=== PATIENT | male | born 1960 | race Caucasian/White ===

== ENCOUNTER 2021-05-12 17:22 | Emergency (ER) | payer OTHER ==
--- NOTE | 2021-05-12 17:40 | EDM.PDOC ---
ED HPI GENERAL MEDICAL PROBLEM - General Chief Complaint: Cardiovascular Problem Stated Complaint: IRREGULAR HEART BEAT Time Seen by Provider: 05/12/21 17:37 Source of Information: Reports: Patient History Limitations: Reports: No Limitations - History of Present Illness INITIAL COMMENTS - FREE TEXT/NARRATIVE: 60-year-old male who states at approximately 1:30 PM today while at work doing some rather strenuous work he noted all of a sudden that he became somewhat lightheaded and he felt short of breath with any kind of activity and he felt that his energy level dropped and that any task that he was doing seemed to be harder for him to do. He got short of breath with any activity and he felt very fatigued. He also felt very shaky all over. He felt his pulse and he felt like his heart was beating somewhat fast. He had no chest pain associated with this. There was no nausea or vomiting. He had no arm, neck, jaw or back pain associated with this. He did feel tense all over. He continued to work and at 3:30 PM he got off and went home and states that he made him some dinner and ate a bowl of chicken soup at around 4:30 PM. Following this, he states he went to the hot tub and spent about 10-15 minutes in the hot tub to try to relax and when he got out he was feeling rather sweaty and still noticed that his pulse rate was elevated. His got home at around 5 PM and she also noted that his pulse rate was elevated in the 130 to 140 range and she felt that he was diaphoretic (she is a dietitian at [employer]) and therefore she brought into the emergency department for evaluation. He presents here with a pulse rate of 140 and he still having no chest pain. He states that he feels no shortness of breath while lying on the stretcher and really other than feeling tense all over, he has no symptoms now. He has had no antecedent symptoms. He reports she has been eating and drinking normally. There have been no cough or cold type symptoms. He has had no sore throat. He did have cold symptoms about 2 weeks ago but they have completely resolved now. He has never had anything like this before. He really has no medical problems other than some hyper cholesterolemia that is being treated with [id number] meds and diet change. There are no other associated signs or symptoms. There are no other modifying factors. 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 (see below) (Nothing.) - Related Data Allergies Allergy/AdvReac Type Severity Reaction Status Date / Time No Known Allergies Allergy Verified 05/12/21 17:49 Home Meds: Home Meds Turm/Ging/Orion/Yuc/Amrit/Elin/Hor [Tumersaid Tablet] 1 tab PO DAILY 05/12/21 [History] Ubidecarenone [Co Q-10] 10 mg PO DAILY 05/12/21 [History] Vitamin B Complex [Super B-50 Complex] 1 tab PO DAILY 05/12/21 [History] Past Medical History Cardiovascular History: Reports: High Cholesterol - Past Surgical History HEENT Surgical History: Reports: Naso-Sinus Surgery Musculoskeletal Surgical History: Reports: Other (See Below) (Right knee surgery) Dermatological Surgical History: Reports: Other (See Below) (Lipoma removed from his back) Social & Family History - Tobacco Use Tobacco Use Status *Q: Unknown Ever Used Tobacco (Nonsmoker.) - Alcohol Use Alcohol Use History: Yes Alcohol Use Frequency: Daily (Drinks one beer or more a day. Has 2 glasses of wine a day and usually has two double bourbons daily.) ED ROS GENERAL - Review of Systems Review Of Systems: See Below Constitutional: Reports: Fatigue (Today after 1:30 PM). Denies: Fever, Chills HEENT: Denies: Throat Pain, Throat Swelling Respiratory: Reports: Shortness of Breath (With activity). Denies: Cough Cardiovascular: Reports: Dyspnea on Exertion, Lightheadedness. Denies: Chest Pain Endocrine: Reports: Fatigue GI/Abdominal: Denies: Abdominal Pain, Nausea, Vomiting : Denies: Dysuria, Hematuria Musculoskeletal: Denies: Shoulder Pain, Arm Pain, Back Pain Skin: Reports: Diaphoresis. Denies: Rash Neurological: Denies: Confusion, Dizziness, Headache Psychiatric: Denies: Anxiety Hematologic/Lymphatic: Denies: Easy Bleeding, Easy Bruising Immunologic: Reports: Other (Patient has been vaccinated for Covid) ED EXAM, GENERAL - Physical Exam Exam: See Below Exam Limited By: No Limitations General Appearance: Alert, WD/WN, Mild Distress, Other (Other than his heart rate being 140, he is nontoxic.) Eye Exam: Bilateral Eye: EOMI, Normal Inspection, PERRL Ears: Normal External Exam, Hearing Grossly Normal Ear Exam: Bilateral Ear: Auricle Normal Nose: Normal Inspection, Normal Mucosa, No Blood Throat/Mouth: Normal Lips, Normal Voice, No Airway Compromise, Other Head: Atraumatic, Normocephalic Neck: Normal Inspection, Supple, Non-Tender, Full Range of Motion #1 Interpretation EKG Date: 05/12/21 Time: 17:27 Rhythm: A-Flutter (With a 2 to 1 block.) Rate (Beats/Min): 130 Elgin: Normal P-Wave: Absent QRS: Normal ST-T: Other (Diffuse nonspecific ST-T changes) QT: Prolonged (Prolonged QTc.) Comparison: NA - No Prior EKG #2 Interpretation EKG Date: 05/12/21 Time: 19:38 Rhythm: NSR Rate (Beats/Min): 66 Elgin: LAD-Left Elgin Deviation (Slight left axis.) P-Wave: Present QRS: Other (LVH. Poor R-wave progression.) ST-T: Elevated (ST segment elevation in V1 and V2, questionable early repolarization. There is ST segment inversion in lead 1 and depression in 2, 3 and aVF.) QT: Normal Comparison: Change From Previous EKG (Compared to the previous EKG done today, his atrial flutter with RVR has resolved area his QTc is now normal) Course - Vital Signs Last Recorded V/S: Last Vital Signs Temp 36.6 C 05/12/21 17:35 Pulse 133 H 05/12/21 19:00 Resp 17 05/12/21 20:15 BP 156/91 H 05/12/21 20:15 Pulse Ox 95 05/12/21 20:15 - Orders/Labs/Meds Orders: Active Orders 24 hr Category Date Time Status EKG Documentation Completion [RC] ASDIRECTED Care 05/12/21 18:00 Active Chest 1V Frontal [CR] Stat Exams 05/12/21 17:56 Taken Heparin Sodium/0.45% NaCl [Heparin 25,000 Units in 1/2 Med 05/12/21 21:48 Active NS 500 ML] 500 ml IV ASDIRECTED Sodium Chloride 0.9% [Normal Saline] 1,000 ml Med 05/12/21 18:15 Active IV ASDIRECTED Sodium Chloride 0.9% [Normal Saline] 1,000 ml Med 05/12/21 19:45 Active IV ASDIRECTED Sodium Chloride 0.9% [Saline Flush] Med 05/12/21 17:56 Active 10 ml FLUSH ASDIRECTED PRN Peripheral IV Insertion Adult [OM.PC] Routine Oth 05/12/21 17:56 Ordered EKG 12 Lead [EK] Routine Ther 05/12/21 17:56 Ordered Medication Orders Sodium Chloride (Normal Saline) 1,000 mls @ 150 mls/hr IV ASDIRECTED CATRINA Last Admin: 05/12/21 18:35 Dose: 999 mls/hr Documented by: JASVIR Sodium Chloride (Normal Saline) 1,000 mls @ 125 mls/hr IV ASDIRECTED CATRINA Heparin Sodium/Sodium Chloride (Heparin 25,000 Units In 1/2 Ns 500 Ml) 500 mls @ 20.003 mls/hr IV ASDIRECTED CATRINA Last Admin: 05/12/21 22:01 Dose: 10.5 units/kg/hr, 20.003 mls/hr Documented by: LORENZO Cosigned by: TANYA Sodium Chloride (Sodium Chloride 0.9% 10 Ml Syringe) 10 ml FLUSH ASDIRECTED PRN PRN Reason: Keep Vein Open Last Admin: 05/12/21 18:05 Dose: 10 ml Documented by: JASVIR Labs: Laboratory Tests 05/12/21 05/12/21 05/12/21 Range/Units 18:20 18:20 18:20 WBC 8.2 (3.2-10.1) x10-3/uL RBC 4.78 (3.90-5.90) x10(6)uL Hgb 15.8 (12.9-17.7) g/dL Hct 46.5 (38.3-50.1) % MCV 97.1 (80.8-98.7) fL MCH 33.0 (27.0-33.3) pg MCHC 34.0 (28.7-35.3) g/dL RDW 12.9 (12.4-15.0) % Plt Count 210 (117-477) x10(3)uL MPV 8.4 (6.7-11.0) fL Neut % (Auto) 64.8 (40.3-71.8) % Lymph % (Auto) 19.4 (15.8-45.3) % Catron % (Auto) 12.6 (5.5-15.2) % Eos % (Auto) 2.9 (0.1-6.8) % Baso % (Auto) 0.3 (0.3-3.8) % Neut # (Auto) 5.3 (1.7-6.9) x10-3/uL Lymph # (Auto) 1.6 (0.5-4.5) x10-3/uL Catron # (Auto) 1.0 (0.0-1.2) x10-3/uL Eos # (Auto) 0.2 (0.0-0.6) x10-3/uL Baso # (Auto) 0.0 (0.0-0.3) x10-3/uL APTT (24.4-33.2) SECONDS Sodium 143 (135-145) mmol/L Potassium 4.6 (3.5-5.3) mmol/L Chloride 105 (100-110) mmol/L Carbon Dioxide 28 (21-32) mmol/L BUN 29 H (7-18) mg/dL Creatinine 2.1 H* (0.70-1.30) mg/dL Est Cr Clr Drug Dosing TNP Estimated GFR (MDRD) 32 L (>60) BUN/Creatinine Ratio 13.8 (9-20) Glucose 110 (80-116) mg/dL Calcium 9.1 (8.6-10.2) mg/dL Magnesium 2.1 (1.8-2.5) mg/dL Total Bilirubin 0.6 (0.1-1.3) mg/dL AST 34 H (5-25) IU/L ALT 43 H (12-36) U/L Alkaline Phosphatase 68 (56-112) IU/L Troponin I 116.7 H* (4.0-60.3) pg/mL Total Protein 6.9 (6.0-8.0) g/dL Albumin 3.9 (3.2-4.6) g/dL Globulin 3.0 g/dL Albumin/Globulin Ratio 1.3 05/12/21 05/12/21 Range/Units 18:22 20:30 WBC (3.2-10.1) x10-3/uL RBC (3.90-5.90) x10(6)uL Hgb (12.9-17.7) g/dL Hct (38.3-50.1) % MCV (80.8-98.7) fL MCH (27.0-33.3) pg MCHC (28.7-35.3) g/dL RDW (12.4-15.0) % Plt Count (117-477) x10(3)uL MPV (6.7-11.0) fL Neut % (Auto) (40.3-71.8) % Lymph % (Auto) (15.8-45.3) % Catron % (Auto) (5.5-15.2) % Eos % (Auto) (0.1-6.8) % Baso % (Auto) (0.3-3.8) % Neut # (Auto) (1.7-6.9) x10-3/uL Lymph # (Auto) (0.5-4.5) x10-3/uL Catron # (Auto) (0.0-1.2) x10-3/uL Eos # (Auto) (0.0-0.6) x10-3/uL Baso # (Auto) (0.0-0.3) x10-3/uL APTT 27.8 (24.4-33.2) SECONDS Sodium (135-145) mmol/L Potassium (3.5-5.3) mmol/L Chloride (100-110) mmol/L Carbon Dioxide (21-32) mmol/L BUN (7-18) mg/dL Creatinine (0.70-1.30) mg/dL Est Cr Clr Drug Dosing Estimated GFR (MDRD) (>60) BUN/Creatinine Ratio (9-20) Glucose (80-116) mg/dL Calcium (8.6-10.2) mg/dL Magnesium (1.8-2.5) mg/dL Total Bilirubin (0.1-1.3) mg/dL AST (5-25) IU/L ALT (12-36) U/L Alkaline Phosphatase (56-112) IU/L Troponin I 122.1 H* (4.0-60.3) pg/mL Total Protein (6.0-8.0) g/dL Albumin (3.2-4.6) g/dL Globulin g/dL Albumin/Globulin Ratio Meds: Medications Generic Name Dose Route Start Last Admin Trade Name Joaquina PRN Reason Stop Dose Admin Sodium Chloride 1,000 mls @ 150 mls/hr 05/12/21 18:15 05/12/21 18:35 Normal Saline IV 999 mls/hr ASDIRECTED CATRINA Administration Sodium Chloride 1,000 mls @ 125 mls/hr 05/12/21 19:45 Normal Saline IV ASDIRECTED CATRINA Heparin Sodium/Sodium Chloride 500 mls @ 20.003 mls/hr 05/12/21 21:48 05/12/21 22:01 Heparin 25,000 Units In 1/2 Ns 500 Ml IV 10.5 units/kg/hr ASDIRECTED CATRINA 20.003 mls/hr Administration 10.5 UNITS/KG/HR Sodium Chloride 10 ml 05/12/21 17:56 05/12/21 18:05 Sodium Chloride 0.9% 10 Ml Syringe FLUSH 10 ml ASDIRECTED PRN Administration Keep Vein Open Discontinued Medications Generic Name Dose Route Start Last Admin Trade Name Joaquina PRN Reason Stop Dose Admin Adenosine 6 mg 05/12/21 18:02 05/12/21 18:10 Adenosine 6 Mg/2 Ml Sdv IVPUSH 05/12/21 18:03 6 mg NOW ONE Administration Adenosine Confirm 05/12/21 18:17 05/12/21 18:51 Adenosine 6 Mg/2 Ml Sdv Administered 05/12/21 18:18 Not Given Dose 12 mg .ROUTE .STK-MED ONE Adenosine 12 mg 05/12/21 18:20 05/12/21 18:20 Adenosine 6 Mg/2 Ml Sdv IVPUSH 05/12/21 18:21 12 mg NOW ONE Administration Aspirin 324 mg 05/12/21 21:44 05/12/21 21:46 Aspirin 81 Mg Tab.Chew PO 05/12/21 21:45 324 mg ONETIME ONE Administration Diltiazem HCl 25 mg 05/12/21 19:15 05/12/21 19:33 Diltiazem 25 Mg/5 Ml Sdv IVPUSH 05/12/21 19:16 Not Given ONETIME ONE Heparin Sodium (Porcine) 4,000 units 05/12/21 21:47 05/12/21 21:56 Heparin Sodium 5,000 Units/Ml Vial IVPUSH 05/12/21 21:48 4,000 units ONETIME ONE Administration Sodium Chloride 500 mls @ 999 mls/hr 05/12/21 19:40 05/12/21 19:35 Normal Saline IV 05/12/21 20:10 999 mls/hr .BOLUS ONE Administration - Radiology Interpretation Free Text/Narrative:: Portable chest x-ray showed no acute disease. - Re-Assessments/Exams Free Text/Narrative Re-Assessment/Exam: 05/12/21 18:40: Patient continues with a heart rate in the 130 to 140 range. He has been given adenosine 6 mg IV initially with no results and then 12 mg IV with slowing of his heart rate and during this, it was area evidence that he was in atrial flutter. His heart rate slowed transiently but then resumed the atrial flutter with RVR at 130 bpm. He remained hemodynamically and neurologically stable throughout of this. I discussed options with the patient at this point and he would like to consider synchronized cardioversion. 05/12/21 18:50: I was informed by lab that the patient's creatinine was 2.1 and his troponin was 117. He continues to be chest pain-free. His heart rate continues to be in the 130s. I will reevaluate the patient now. 05/12/21 19:10: Patient continues to be chest pain-free at this point. With the patient having had a troponin, the a flutter with RVR and his renal insufficiency, I feel that he will need specialty specially services which are not available at [facility]. I discussed all this with the patient and with his and they would want me to discuss this case with the doctors at [facility] in [place]. 05/12/21 19:17: I called and discussed the patient's case with [facility] and they are on divert and would not be able to accept the patient. 05/12/21 19:30: I called and discussed the patient's case with Dr. Hernandez, student services counselor at [facility], and he feels that we should hydrate the patient and we should repeat his troponin at the two-hour level which would be at 8:30 PM and that we should also treat the patient will diltiazem to slow his heart rate. If the troponin level is elevated, then they would accept the patient in transfer 05/12/21 20:00: The nursing staff was going to give the patient diltiazem and noted that there had been a rhythm change and repeated EKG. This EKG showed a normal sinus rhythm with a rate of 66. There was ST segment elevation in V1 and V2 and possibly V3 that could be early repolarization. The patient at this time is continued to have no chest pain and he feels "back to normal". Will discuss the patient's case with the student services counselor again at [facility] and have them review the EKG. We will continue to monitor the patient closely. 05/12/21 20:15: I did fax EKGs to [facility] and they will route these to the student services counselor. 05/12/21 20:30: The student services counselor at [facility] review the EKG and did not feel that this met criteria for STEMI. The plan will be to repeat the troponin now and will call back and discussed with the student services counselor following this. 05/12/21 21:20: The repeat troponin was slightly elevated over the initial one at 122. The patient continues in a normal sinus rhythm with a rate in the 60s. He continues to be chest pain-free and feels that he is "back to normal". His pressure has been elevated in the 140/90 range. He has received 1.5 L of normal saline IV as a bolus and is receiving 150 mL per hour now. 05/12/21 21:45: I discussed the patient's case again with Dr. Hernandez, student services counselor at [facility], and he has agreed to accept the patient in transfer. He does want the patient placed on heparin with bolus and drip via ACS guidelines and also aspirin 324 mg by mouth. 05/12/21 22:30: I discussed all of this with the patient and his and they're in agreement with this plan. [facility] is here to transport the patient now. He has remained hemodynamically and neurologically stable. Departure - Departure Time of Disposition: 22:36 Disposition: DC/Tfer to [facility] 02 Reason for Transfer *Q: Primary PCI Indicated Condition: Critical Clinical Impression: Non-STEMI (non-ST elevated myocardial infarction), Atrial flutter with rapid ventricular response, Acute renal insufficiency, Elevated blood pressure reading Referrals: PCP,None [Primary Care Provider] - Forms: ED Department Discharge Sepsis Event Note (ED) - Focused Exam Vital Signs: Vital Signs Temp Pulse Resp BP Pulse Ox 05/12/21 20:15 17 156/91 H 95 05/12/21 20:00 19 144/101 H 95 05/12/21 19:45 17 139/96 H 95 05/12/21 19:30 17 142/100 H 95 05/12/21 19:15 16 95 05/12/21 19:00 133 H 15 135/98 H 95 05/12/21 18:45 132 H 16 124/91 H 95 05/12/21 18:30 19 136/94 H 95 05/12/21 18:15 20 145/89 H 96 05/12/21 18:00 20 135/95 H 94 L 05/12/21 17:45 17 147/98 H 94 L 05/12/21 17:35 36.6 C 140 H 17 132/94 H 94 L - My Orders Last 24 Hours: My Active Orders 05/12/21 17:56 Chest 1V Frontal [CR] Stat Sodium Chloride 0.9% [Saline Flush] 10 ml FLUSH ASDIRECTED PRN Peripheral IV Insertion Adult [OM.PC] Routine EKG 12 Lead [EK] Routine 05/12/21 18:00 EKG Documentation Completion [RC] ASDIRECTED 05/12/21 18:15 Sodium Chloride 0.9% [Normal Saline] 1,000 ml IV ASDIRECTED 05/12/21 19:45 Sodium Chloride 0.9% [Normal Saline] 1,000 ml IV ASDIRECTED 05/12/21 21:48 Heparin Sodium/0.45% NaCl [Heparin 25,000 Units in 1/2 NS 500 ML] 500 ml IV ASDIRECTED - Assessment/Plan Last 24 Hours: My Active Orders 05/12/21 17:56 Chest 1V Frontal [CR] Stat Sodium Chloride 0.9% [Saline Flush] 10 ml FLUSH ASDIRECTED PRN Peripheral IV Insertion Adult [OM.PC] Routine EKG 12 Lead [EK] Routine 05/12/21 18:00 EKG Documentation Completion [RC] ASDIRECTED 05/12/21 18:15 Sodium Chloride 0.9% [Normal Saline] 1,000 ml IV ASDIRECTED 05/12/21 19:45 Sodium Chloride 0.9% [Normal Saline] 1,000 ml IV ASDIRECTED 05/12/21 21:48 Heparin Sodium/0.45% NaCl [Heparin 25,000 Units in 1/2 NS 500 ML] 500 ml IV ASDIRECTED
[2021-05-12] MEDS ORDERED: Sodium Chloride 0.9% 10 ML Syringe FLUSH PRN (17:56)
[2021-05-12] MEDS ORDERED: Adenosine 6 MG/2 ML SDV IVPUSH ONE ×2 (18:02→18:20)
[2021-05-12] MEDS ORDERED: Sodium Chloride 0.9% 1,000 ML IV SCH ×2 (18:15→19:45)
[2021-05-12] MEDS ORDERED: Adenosine 6 MG/2 ML SDV ONE (18:17)
[2021-05-12] MEDS ORDERED: Diltiazem 25 MG/5 ML SDV IVPUSH ONE (19:15)
[2021-05-12] MEDS ORDERED: Sodium Chloride 0.9% 500 ML IV ONE (19:40)
[2021-05-12] MEDS ORDERED: Aspirin 81 MG Tab.Chew PO ONE (21:44)
[2021-05-12] MEDS ORDERED: Heparin Sodium 5,000 Units/ML Vial IVPUSH ONE (21:47)
[2021-05-12] MEDS ORDERED: Heparin Sodium/0.45% NaCl 500 ML IV SCH (21:48)
--- NOTE | 2021-05-13 11:03 | CR ---
INDICATION: Shortness of breath, fast heart rate. CHEST ONE VIEW: Two AP portable upright views of the chest were obtained 05/12/21 - no comparisons. The heart appeared normal in size and shape. The aorta is tortuous with calcification of the arch. Overlying grommets are noted as well as overlying EKG leads. An active infiltrate or effusion was not identified. However, there is bronchial wall cuffing in the lower lung palomo especially at the lung bases, which could represent active peribronchial disease and should be correlated clinically. IMPRESSION: 1. Bronchial wall cuffing - correlate clinically. 2. ASD aorta. MTDD
== END 2021-05-12 22:41 ==
LOC: FB.ED 17:22
DX: I21.4 Non-ST elevation (NSTEMI) myocardial infarction (principal); N28.9 Disorder of kidney and ureter, unspecified; I48.92 Unspecified atrial flutter; R03.0 Elevated blood-pressure reading, without diagnosis of hypertension
CPT/HCPCS: 36415; 71045; 80053; 83735; 84484; 85025; 85730; 93005; 93010; 96365; 96375; 99285; 99285-25; A9270-GY; J0153; J1644; J7030; J7040

== ENCOUNTER 2021-08-20 08:08 | Emergency (ER) | payer OTHER ==
[2021-08-20] MEDS: Sodium Chloride 0.9% 1,000 ML IV SCH (08:41)
[2021-08-20] MEDS: Loperamide 2 MG Cap PO ONE (08:43)
--- NOTE | 2021-08-20 09:16 | EDM.PDOC ---
ED HPI GENERAL MEDICAL PROBLEM - General Chief Complaint: Gastrointestinal Problem Stated Complaint: DIARRHEA 4DAYS Time Seen by Provider: 08/20/21 08:25 Source of Information: Reports: Patient History Limitations: Reports: No Limitations - History of Present Illness INITIAL COMMENTS - FREE TEXT/NARRATIVE: Patient presented to the ED because of diarrhea x 4 days. Her stool is mostly watery. Denies having any abdominal pain, nausea or vomiting. Rectal Pain Score (Numeric/FACES): 2 - Related Data Allergies Allergy/AdvReac Type Severity Reaction Status Date / Time No Known Allergies Allergy Verified 05/12/21 17:49 Home Meds: Home Meds Turm/Ging/Orion/Yuc/Amrit/Elin/Hor [Tumersaid Tablet] 1 tab PO DAILY 05/12/21 [History] Ubidecarenone [Co Q-10] 10 mg PO DAILY 05/12/21 [History] Vitamin B Complex [Super B-50 Complex] 1 tab PO DAILY 05/12/21 [History] Aspirin [Lo-Dose Aspirin EC] 81 mg PO DAILY 08/20/21 [History] Metoprolol Tartrate 25 mg PO DAILY 08/20/21 [History] Past Medical History Cardiovascular History: Reports: High Cholesterol, CO, Other (See Below) Other Cardiovascular History: aflutter with RVR - Past Surgical History HEENT Surgical History: Reports: Naso-Sinus Surgery Musculoskeletal Surgical History: Reports: Other (See Below) Dermatological Surgical History: Reports: Other (See Below) Social & Family History - Tobacco Use Tobacco Use Status *Q: Never Tobacco User - Caffeine Use Caffeine Use: Reports: Coffee, Soda - Alcohol Use Days Per Week of Alcohol Use: 5 Number of Drinks Per Day: 3 Total Drinks Per Week: 15 - Recreational Drug Use Recreational Drug Use: Yes Drug Use in Last 12 Months: Yes Recreational Drug Type: Reports: Marijuana/Hashish ED ROS GENERAL - Review of Systems Review Of Systems: See Below Constitutional: Reports: No Symptoms HEENT: Reports: No Symptoms Respiratory: Reports: No Symptoms Cardiovascular: Reports: No Symptoms Endocrine: Reports: No Symptoms GI/Abdominal: Reports: Diarrhea : Reports: No Symptoms Musculoskeletal: Reports: No Symptoms Skin: Reports: No Symptoms Neurological: Reports: No Symptoms Psychiatric: Reports: No Symptoms ED EXAM, GI/ABD - Physical Exam Exam: See Below Exam Limited By: No Limitations General Appearance: Alert, No Apparent Distress Ears: Normal External Exam, Normal Canal, Hearing Grossly Normal Nose: Normal Inspection, Normal Mucosa, No Blood Throat/Mouth: Normal Inspection, Normal Lips, Normal Teeth, Normal Gums, Normal Oropharynx, Normal Voice Head: Atraumatic, Normocephalic Neck: Normal Inspection, Supple, Non-Tender, Full Range of Motion Respiratory/Chest: No Respiratory Distress, Lungs Clear, Normal Breath Sounds, No Accessory Muscle Use, Chest Non-Tender Cardiovascular: Normal Peripheral Pulses, Regular Rate, Rhythm, No Edema, No Gallop, No JVD, No Murmur, No Rub GI/Abdominal Exam: Normal Bowel Sounds, Soft, Non-Tender, No Organomegaly, No Distention, Other (hyperactive BS) Back Exam: Normal Inspection, Full Range of Motion Extremities: Normal Inspection, Normal Range of Motion Psychiatric: Normal Affect Skin Exam: Warm Course - Vital Signs Text/Narrative:: Lab result was reviewed and dicussed with patient NS 1 L bolus Lomotil 2 tabs PO x1 Last Recorded V/S: Last Vital Signs Temp 36.1 C 08/20/21 08:19 Pulse 66 08/20/21 08:19 Resp 18 08/20/21 08:19 BP 145/92 H 08/20/21 08:19 Pulse Ox 95 08/20/21 08:19 - Orders/Labs/Meds Labs: Laboratory Tests 08/20/21 08/20/21 Range/Units 08:46 08:46 WBC 6.9 (3.2-10.1) x10-3/uL RBC 5.27 (3.90-5.90) x10(6)uL Hgb 16.5 (12.9-17.7) g/dL Hct 49.6 (38.3-50.1) % MCV 94.3 (80.8-98.7) fL MCH 31.3 (27.0-33.3) pg MCHC 33.2 (28.7-35.3) g/dL RDW 12.8 (12.4-15.0) % Plt Count 236 (117-477) x10(3)uL MPV 7.6 (6.7-11.0) fL Add Manual Diff Yes Neutrophils % (Manual) 64 (46-82) % Lymphocytes % (Manual) 30 (13-37) % Monocytes % (Manual) 6 (4-12) % Sodium 140 (135-145) mmol/L Potassium 4.4 (3.5-5.3) mmol/L Chloride 103 (100-110) mmol/L Carbon Dioxide 26 (21-32) mmol/L BUN 22 H (7-18) mg/dL Creatinine 1.0 (0.70-1.30) mg/dL Est Cr Clr Drug Dosing TNP Estimated GFR (MDRD) > 60 (>60) BUN/Creatinine Ratio 22.0 H (9-20) Glucose 104 (80-116) mg/dL Calcium 9.1 (8.6-10.2) mg/dL Meds: Medications Discontinued Medications Generic Name Dose Route Start Last Admin Trade Name Freq PRN Reason Stop Dose Admin Sodium Chloride 1,000 mls @ 999 mls/hr 08/20/21 08:30 08/20/21 08:41 Normal Saline IV 999 mls/hr ASDIRECTED CATRINA Administration Loperamide HCl 4 mg 08/20/21 08:30 08/20/21 08:43 Loperamide 2 Mg Cap PO 08/20/21 08:31 4 mg ONETIME ONE Administration Departure - Departure Time of Disposition: 09:30 Disposition: Home, Self-Care 01 Condition: Good Clinical Impression: Viral gastroenteritis, Dehydration - Discharge Information Instructions: Viral Gastroenteritis, Adult, [id number], Dehydration, Adult, [id number] Referrals: PCP,None [Primary Care Provider] - Forms: ED Department Discharge Additional Instructions: Please read discharge instructions on stomach flu and dehydration Frequent hand washing Drink at least 2 liters of water daily Imodium(over the counter) 2 tablets every 6 hours as needed for diarrhea Follow up as needed Sepsis Event Note (ED) - Evaluation Sepsis Screening Result: No Definite Risk - Focused Exam Vital Signs: Vital Signs Temp Pulse Resp BP Pulse Ox 08/20/21 08:19 36.1 C 66 18 145/92 H 95
== END 2021-08-20 09:46 | disposition home or self-care (01) ==
LOC: FB.ED 08:08
DX: A08.4 Viral intestinal infection, unspecified (principal); E86.0 Dehydration; E78.00 Pure hypercholesterolemia, unspecified; I25.2 Old myocardial infarction; Z79.82 Long term (current) use of aspirin; Z79.899 Other long term (current) drug therapy
CPT/HCPCS: 36415; 80048; 85025; 99284; A9270; J7030

== ENCOUNTER 2021-11-28 14:27 | Emergency (ER) | payer OTHER ==
[2021-11-28] MEDS ORDERED: Sodium Chloride 0.9% 10 ML Syringe FLUSH PRN (14:30)
[2021-11-28] MEDS ORDERED: Morphine 4 MG/ML VIAL IVPUSH ONE (14:31)
[2021-11-28] MEDS ORDERED: Ketorolac 30 MG/ML SDV IVPUSH ONE (14:31)
[2021-11-28] MEDS ORDERED: Cyclobenzaprine 10 MG Tab PO STA (14:49)
--- NOTE | 2021-11-28 16:32 | EDM.PDOC ---
ED HPI GENERAL MEDICAL PROBLEM - General Stated Complaint: BACK PAIN Time Seen by Provider: 11/28/21 14:55 Source of Information: Reports: Patient History Limitations: Reports: No Limitations - History of Present Illness INITIAL COMMENTS - FREE TEXT/NARRATIVE: Patient presented to the ED because of of upper and lower back pain, left rib pain after he slipped and fell o the ice. He landed on his back and c/o 10/10 pain that is worse with sitting up and body movements. There was no LOC after the fall and didn't sustain any other injuries. Left Middle Back Pain Score (Numeric/FACES): 10 - Related Data Allergies Allergy/AdvReac Type Severity Reaction Status Date / Time No Known Allergies Allergy Verified 11/28/21 14:32 Home Meds: Home Meds Turm/Ging/Orion/Yuc/Amrit/Elin/Hor [Tumersaid Tablet] 1 tab PO DAILY 05/12/21 [History] Ubidecarenone [Co Q-10] 10 mg PO DAILY 05/12/21 [History] Vitamin B Complex [Super B-50 Complex] 1 tab PO DAILY 05/12/21 [History] Aspirin [Lo-Dose Aspirin EC] 81 mg PO DAILY 08/20/21 [History] Metoprolol Tartrate 25 mg PO DAILY 08/20/21 [History] Cyclobenzaprine [Flexeril] 10 mg PO TID PRN #30 tab 11/28/21 [Rx] Ibuprofen 800 mg PO TID PRN #30 tablet 11/28/21 [Rx] Past Medical History Cardiovascular History: Reports: High Cholesterol, NE, Other (See Below) Other Cardiovascular History: aflutter with RVR - Past Surgical History HEENT Surgical History: Reports: Naso-Sinus Surgery Musculoskeletal Surgical History: Reports: Other (See Below) Dermatological Surgical History: Reports: Other (See Below) Social & Family History - Caffeine Use Caffeine Use: Reports: Coffee, Soda ED ROS GENERAL - Review of Systems Review Of Systems: See Below Constitutional: Reports: No Symptoms HEENT: Reports: No Symptoms Respiratory: Reports: No Symptoms Cardiovascular: Reports: No Symptoms Endocrine: Reports: No Symptoms GI/Abdominal: Reports: No Symptoms : Reports: No Symptoms Musculoskeletal: Reports: Back Pain, Muscle Pain Skin: Reports: No Symptoms Neurological: Reports: No Symptoms Psychiatric: Reports: No Symptoms ED EXAM,LOWER BACK PAIN/INJURY - Physical Exam Exam: See Below Exam Limited By: No Limitations General Appearance: Alert, No Apparent Distress Eye Exam: Bilateral Eye: PERRL Ears: Normal External Exam, Normal Canal Nose: Normal Inspection, Normal Mucosa, No Blood Throat/Mouth: Normal Inspection, Normal Lips, Normal Teeth, Normal Gums, Normal Oropharynx, Normal Voice Head: Atraumatic, Normocephalic Neck: Normal Inspection, Supple, Non-Tender, Full Range of Motion Respiratory/Chest: No Respiratory Distress, Lungs Clear, Normal Breath Sounds, No Accessory Muscle Use, Chest Non-Tender (left rib area between 9-10th rib), Other Cardiovascular: Normal Peripheral Pulses, Regular Rate, Rhythm, No Edema, No Gallop GI/Abdominal: Normal Bowel Sounds, Soft, Non-Tender, No Organomegaly, No Distention, No Abnormal Bruit Back Exam: Normal Inspection, Muscle Spasm, Vertebral Tenderness Extremities: Normal Inspection, Normal Range of Motion, Non-Tender Neurological: Alert, Normal Dorsiflexion Skin Exam: Warm Course - Vital Signs Text/Narrative:: Xray of the left rib,lumbar and thoracic spine Toradol 30 mg IV x1 Flexeril 10 mg PO x1 Morphine 4 mg IV x1 Last Recorded V/S: Last Vital Signs Temp 36.2 C 11/28/21 14:49 Pulse 88 11/28/21 14:49 Resp 18 11/28/21 14:49 BP Pulse Ox 96 11/28/21 14:49 - Orders/Labs/Meds Orders: Active Orders 24 hr Category Date Time Status Lumbar Spine 2 or 3V [CR] Stat Exams 11/28/21 14:50 Taken Ribs 2V w Chest Lt [CR] Stat Exams 11/28/21 14:50 Taken Thoracic Spine 3V [CR] Stat Exams 11/28/21 14:50 Taken Sodium Chloride 0.9% [Saline Flush] Med 11/28/21 14:30 Active 10 ml FLUSH ASDIRECTED PRN Medication Orders Sodium Chloride (Sodium Chloride 0.9% 10 Ml Syringe) 10 ml FLUSH ASDIRECTED PRN PRN Reason: IV Use Meds: Medications Generic Name Dose Route Start Last Admin Trade Name Freq PRN Reason Stop Dose Admin Sodium Chloride 10 ml 11/28/21 14:30 Sodium Chloride 0.9% 10 Ml Syringe FLUSH ASDIRECTED PRN IV Use Discontinued Medications Generic Name Dose Route Start Last Admin Trade Name Freq PRN Reason Stop Dose Admin Cyclobenzaprine HCl 10 mg 11/28/21 14:49 11/28/21 15:02 Cyclobenzaprine 10 Mg Tab PO 11/28/21 14:50 10 mg NOW STA Administration Ketorolac Tromethamine 30 mg 11/28/21 14:31 11/28/21 14:35 Ketorolac 30 Mg/Ml Sdv IVPUSH 11/28/21 14:32 30 mg ONETIME ONE Administration Morphine Sulfate 4 mg 11/28/21 14:31 11/28/21 14:40 Morphine 4 Mg/Ml Vial IVPUSH 11/28/21 14:32 4 mg ONETIME ONE Administration Departure - Departure Time of Disposition: 16:50 Disposition: Home, Self-Care 01 Condition: Good Clinical Impression: Fall, Back strain - Discharge Information Prescriptions: Cyclobenzaprine [Flexeril] 10 mg PO TID PRN #30 tab PRN Reason: Spasms Ibuprofen 800 mg PO TID PRN #30 tablet PRN Reason: Pain Instructions: Muscle Strain, [id number], Lumbar Strain Referrals: Michelle Vazquez, SCIENCE MANAGER [Primary Care Provider] - Additional Instructions: Please read discharge instructions on fall and muscle strai Apply ice or heat whichever you prefer Take the follow ing medications all at the same time for better pain relief: Ibuprofen 800 mg with tylenol 1000 mg and flexeril 10 mg 3 times daily as needed for pain and spasm Follow up as needed Sepsis Event Note (ED) - Evaluation Sepsis Screening Result: No Definite Risk - Focused Exam Vital Signs: Vital Signs Temp Pulse Resp Pulse Ox 11/28/21 14:49 36.2 C 88 18 96 - My Orders Last 24 Hours: My Active Orders 11/28/21 14:30 Sodium Chloride 0.9% [Saline Flush] 10 ml FLUSH ASDIRECTED PRN 11/28/21 14:50 Lumbar Spine 2 or 3V [CR] Stat Ribs 2V w Chest Lt [CR] Stat Thoracic Spine 3V [CR] Stat - Assessment/Plan Last 24 Hours: My Active Orders 11/28/21 14:30 Sodium Chloride 0.9% [Saline Flush] 10 ml FLUSH ASDIRECTED PRN 11/28/21 14:50 Lumbar Spine 2 or 3V [CR] Stat Ribs 2V w Chest Lt [CR] Stat Thoracic Spine 3V [CR] Stat
== END 2021-11-28 17:00 | disposition home or self-care (01) ==
LOC: FB.ED 14:27 → SUPCPDRO 14:27 → FB.ED 17:00
DX: S39.012A Strain of muscle, fascia and tendon of lower back, initial encounter (principal); I25.2 Old myocardial infarction; Z79.82 Long term (current) use of aspirin; W00.0XXA Fall on same level due to ice and snow, initial encounter
CPT/HCPCS: 71101-LT; 72072; 72100; 96374; 96375; 99000; 99283-25; A9270-GY; J1885; J2270

== ENCOUNTER 2022-05-02 19:05 | Emergency (ER) | payer OTHER ==
[2022-05-02] MEDS: Diltiazem 25 MG/5 ML SDV IVPUSH STA (19:26)
[2022-05-02] MEDS: Sodium Chloride 0.9% 10 ML Syringe FLUSH PRN (19:29)
[2022-05-02 19:42] LABS: ESTIMATED GFR 44 (>60)
[2022-05-02] MEDS: Metoprolol Tartrate 5 MG/5 ML SDV IVPUSH ONE ×2 (19:44→19:50)
[2022-05-02] MEDS: Sodium Chloride 0.9% 1,000 ML IV SCH (20:05)
[2022-05-02] MEDS: Metoprolol Tartrate 5 MG/5 ML SDV IVPUSH STA (20:29)
[2022-05-02] MEDS: Metoprolol Tartrate 50 MG Tab PO ONE (20:29)
== END 2022-05-02 21:35 | disposition home or self-care (01) ==
LOC: FB.ED 19:05
DX: I48.91 Unspecified atrial fibrillation (principal); I48.92 Unspecified atrial flutter; E78.00 Pure hypercholesterolemia, unspecified; I25.2 Old myocardial infarction; Z79.899 Other long term (current) drug therapy
CPT/HCPCS: 36415; 71045; 80053; 83880; 84484; 85025; 85379; 93005; 93010; 96361; 96374; 96375; 96376; 99283; 99285; A9270; J3490; J7030

== ENCOUNTER 2022-06-17 13:44 | Emergency (ER) | payer OTHER ==
[2022-06-17] MEDS ORDERED: Diltiazem 25 MG/5 ML SDV IVPUSH ONE (14:07)
[2022-06-17] MEDS ORDERED: Sodium Chloride 0.9% 1,000 ML IV ONE (14:07)
[2022-06-17 14:41] LABS: ESTIMATED GFR 69 mL/min (>60)
== END 2022-06-17 16:12 | disposition home or self-care (01) ==
LOC: FB.ED 13:44
DX: I48.92 Unspecified atrial flutter (principal); E86.0 Dehydration; E78.00 Pure hypercholesterolemia, unspecified; I25.2 Old myocardial infarction; R79.89 Other specified abnormal findings of blood chemistry; R79.0 Abnormal level of blood mineral; Z86.16 Personal history of COVID-19; Z79.82 Long term (current) use of aspirin; Z79.899 Other long term (current) drug therapy
CPT/HCPCS: 36415; 80053; 81001; 83605; 83880; 84484; 85025; 85379; 86140; 93005; 96361; 96374; 99285; J3490; J7030; 93010; 99283

== ENCOUNTER 2022-06-19 15:42 | Emergency (ER) | payer OTHER ==
[2022-06-19] MEDS ORDERED: Sodium Chloride 0.9% 10 ML Syringe FLUSH PRN (16:08)
[2022-06-19] MEDS ORDERED: Sodium Chloride 0.9% 1,000 ML IV SCH (16:15)
[2022-06-19] MEDS ORDERED: Diltiazem 25 MG/5 ML SDV IVPUSH ONE ×2 (16:19→17:33)
[2022-06-19 16:21] LABS: ESTIMATED GFR 63 mL/min (>60)
[2022-06-19] MEDS ORDERED: Sodium Chloride 0.9% 500 ML IV ONE (17:35)
[2022-06-19] MEDS ORDERED: Carvedilol 25 MG Tab PO ONE (19:13)
[2022-06-19] MEDS ORDERED: Apixaban 5 MG Tab PO ONE (19:14)
== END 2022-06-19 20:14 | disposition home or self-care (01) ==
LOC: FB.ED 15:42
DX: I48.91 Unspecified atrial fibrillation (principal); I48.92 Unspecified atrial flutter; I25.10 Atherosclerotic heart disease of native coronary artery without angina pectoris; E78.00 Pure hypercholesterolemia, unspecified; I10 Essential (primary) hypertension; I25.2 Old myocardial infarction; Z79.01 Long term (current) use of anticoagulants; Z79.82 Long term (current) use of aspirin; Z79.899 Other long term (current) drug therapy
CPT/HCPCS: 36415; 80053; 83735; 84484; 85025; 85379; 93005; 93010; 96361; 96374; 99285-25; A9270-GY; J3490; J7030

== ENCOUNTER 2023-12-17 12:42 | Emergency (ER) | payer OTHER ==
[2023-12-17] MEDS ORDERED: Metoprolol Tartrate 5 MG/5 ML SDV IVPUSH PRN (13:15)
[2023-12-17 13:23] LABS: BASOPHILS PERCENT AUTO 0.7 % (0.3-3.8); EOSINOPHILS ABSOLUTE AUTO 0.1 x10-3/uL (0.0-0.6); EOSINOPHILS PERCENT AUTO 2.1 % (0.1-6.8); HEMATOCRIT 46.4 % (38.3-50.1); HEMOGLOBIN 15.5 g/dL (12.9-17.7); LYMPHOCYTES ABSOLUTE AUTO 1.4 x10-3/uL (0.5-4.5); LYMPHOCYTES PERCENT AUTO 21.8 % (15.8-45.3); MEAN CORPUSCULAR HGB CONC 33.4 g/dL (28.7-35.3); MEAN CORPUSCULAR VOLUME 95.9 fL (80.8-98.7); MEAN PLATELET VOLUME 7.7 fL (6.7-11.0); MONOCYTES ABSOLUTE AUTO 0.7 x10-3/uL (0.0-1.2); MONOCYTES PERCENT AUTO 11.1 % (5.5-15.2); NEUTROPHILS ABSOLUTE AUTO 4.1 x10-3/uL (1.7-6.9); NEUTROPHILS PERCENT AUTO 64.3 % (40.3-71.8); PLATELET COUNT,PLT 193 x10(3)uL (117-477); RED BLOOD CELL COUNT 4.83 x10(6)uL (3.90-5.90); WHITE BLOOD CELL COUNT,WBC 6.4 x10-3/uL (3.2-10.1)
[2023-12-17] MEDS ORDERED: Sodium Chloride 0.9% 10 ML Syringe FLUSH PRN (13:27)
[2023-12-17] MEDS ORDERED: Sodium Chloride 0.9% 1,000 ML IV SCH (13:30)
[2023-12-17 13:31] LABS: BLOOD UREA NITROGEN,BUN 16 mg/dL (7-18); CALCIUM 9.4 mg/dL (8.6-10.2); CARBON DIOXIDE,CO2 27 mmol/L (21-32); CHLORIDE,CL 103 mmol/L (100-110); EST CRCL DRUG DOSING (CG) 78.07 mL/min; ESTIMATED GFR 85 mL/min (>60); GLUCOSE RANDOM 126 mg/dL (80-116); POTASSIUM,K 4.1 mmol/L (3.5-5.3); SODIUM,NA 138 mmol/L (135-145)
[2023-12-17 13:37] LABS: A/G RATIO 1.4; ALANINE AMINOTRANSFERASE,ALT 38 U/L (12-36); ALBUMIN 4.1 g/dL (3.2-4.6); ALKALINE PHOSPHATASE 63 IU/L (56-112); ASPARTATE AMNIOTRANSFERASE,AST 28 IU/L (5-25); BILIRUBIN TOTAL 0.5 mg/dL (0.1-1.3); C-REACTIVE PROTEIN <0.50 mg/dL (<0.50); PROTEIN TOTAL,TP 7.1 g/dL (6.0-8.0)
[2023-12-17 13:39] LABS: BILIRUBIN,URINE NEGATIVE (NEGATIVE); GLUCOSE,URINE NORMAL (NORMAL); KETONES,URINE NEGATIVE (NEGATIVE); LEUKOCYTE ESTERASE,URINE NEGATIVE (NEGATIVE); NITRITE,URINE NEGATIVE (NEGATIVE); OCCULT BLOOD,URINE NEGATIVE (NEGATIVE); PROTEIN,URINE NEGATIVE (NEGATIVE); UROBILINOGEN,URINE NORMAL (NEGATIVE)
[2023-12-17 13:41] LABS: TROPONIN I 262.1 pg/mL (4.0-60.3)
[2023-12-17 13:41] LABS: APPEARANCE,URINE CLEAR (CLEAR); BACTERIA,URINE NOT SEEN (NS); COLOR,URINE YELLOW (YELLOW); RBC,URINE 0-5 (0-5); SQUAMOUS EPITHELIAL CELLS,UR RARE (NS,R,O); WBC,URINE 0-5 (0-5)
[2023-12-17] MEDS ORDERED: Metoprolol Tartrate 5 MG/5 ML SDV IVPUSH ONE (15:42)
== END 2023-12-17 16:50 | disposition home or self-care (01) ==
LOC: FB.ED 12:42
DX: I48.91 Unspecified atrial fibrillation (principal); I48.92 Unspecified atrial flutter; I10 Essential (primary) hypertension; E78.00 Pure hypercholesterolemia, unspecified; I25.10 Atherosclerotic heart disease of native coronary artery without angina pectoris; I25.2 Old myocardial infarction; E66.9 Obesity, unspecified; Z86.16 Personal history of COVID-19; Z79.899 Other long term (current) drug therapy; Z88.8 Allergy status to other drugs, medicaments and biological substances; Z68.30 Body mass index [BMI] 30.0-30.9, adult
CPT/HCPCS: 36415; 80053; 81001; 83735; 84443; 84484; 85025; 86140; 93005; 96374; 96376; 99285; J3490; J7030

== ENCOUNTER 2024-06-23 07:34 | Emergency (ER) | payer OTHER ==
[2024-06-23] MEDS: Diltiazem 25 MG/5 ML SDV IVPUSH ONE (07:56)
[2024-06-23 08:12] LABS: BASOPHILS PERCENT AUTO 0.7 % (0.3-3.8); EOSINOPHILS ABSOLUTE AUTO 0.2 x10-3/uL (0.0-0.6); EOSINOPHILS PERCENT AUTO 2.7 % (0.1-6.8); HEMATOCRIT 41.9 % (38.3-50.1); HEMOGLOBIN 14.2 g/dL (12.9-17.7); LYMPHOCYTES ABSOLUTE AUTO 1.5 x10-3/uL (0.5-4.5); LYMPHOCYTES PERCENT AUTO 24.2 % (15.8-45.3); MEAN CORPUSCULAR HEMOGLOBIN 32.8 pg (27.0-33.3); MEAN CORPUSCULAR HGB CONC 33.9 g/dL (28.7-35.3); MEAN CORPUSCULAR VOLUME 96.8 fL (80.8-98.7); MEAN PLATELET VOLUME 8.3 fL (6.7-11.0); MONOCYTES ABSOLUTE AUTO 0.8 x10-3/uL (0.0-1.2); MONOCYTES PERCENT AUTO 12.1 % (5.5-15.2); NEUTROPHILS ABSOLUTE AUTO 3.8 x10-3/uL (1.7-6.9); NEUTROPHILS PERCENT AUTO 60.3 % (40.3-71.8); PLATELET COUNT,PLT 201 x10(3)uL (117-477); RED BLOOD CELL COUNT 4.32 x10(6)uL (3.90-5.90); RED CELL DISTRIBUTION WIDTH 13.5 % (12.4-15.0); WHITE BLOOD CELL COUNT,WBC 6.3 x10-3/uL (3.2-10.1)
[2024-06-23 08:18] LABS: BLOOD UREA NITROGEN,BUN 21 mg/dL (7-18); BUN/CREATININE RATIO 16.2 (9-20); CALCIUM 8.4 mg/dL (8.6-10.2); CARBON DIOXIDE,CO2 23 mmol/L (21-32); CHLORIDE,CL 101 mmol/L (100-110); CREATININE 1.3 mg/dL (0.70-1.30); EST CRCL DRUG DOSING (CG) 60.05 mL/min; ESTIMATED GFR 62 mL/min (>60); GLUCOSE RANDOM 114 mg/dL (80-116); POTASSIUM,K 3.9 mmol/L (3.5-5.3); SODIUM,NA 137 mmol/L (135-145)
[2024-06-23 08:24] LABS: A/G RATIO 1.1; ALANINE AMINOTRANSFERASE,ALT 51 U/L (12-36); ALBUMIN 3.4 g/dL (3.2-4.6); ALKALINE PHOSPHATASE 68 IU/L (56-112); ASPARTATE AMNIOTRANSFERASE,AST 53 IU/L (5-25); BILIRUBIN TOTAL 0.6 mg/dL (0.1-1.3); PROTEIN TOTAL,TP 6.4 g/dL (6.0-8.0)
[2024-06-23] MEDS: Sodium Chloride 0.9% 1,000 ML IV ONE (08:27)
[2024-06-23] MEDS: Metoprolol Tartrate 5 MG in Sodium Chloride 0.9% 50 ML IV ONE ×2 (09:07→09:40)
[2024-06-23] MEDS: Metoprolol Tartrate 5 MG/5 ML SDV IVPUSH ONE (09:46)
== END 2024-06-23 10:42 ==
LOC: FB.ED 07:34
DX: I48.0 Paroxysmal atrial fibrillation (principal); I48.92 Unspecified atrial flutter; I10 Essential (primary) hypertension; I25.2 Old myocardial infarction; Z86.16 Personal history of COVID-19; Z88.6 Allergy status to analgesic agent; Z79.01 Long term (current) use of anticoagulants; Z79.899 Other long term (current) drug therapy; Z87.891 Personal history of nicotine dependence
CPT/HCPCS: 36415; 80053; 84484; 85025; 93005; 93010; 96361; 96374; 96375; 99285; J3490; J7030